=== PATIENT | male | born 1970 | race Caucasian/White ===

== ENCOUNTER 2018-03-08 16:11 | Emergency (ER) | payer BC, OTHER ==
[2018-03-08 16:18] VITALS: BP 145/91
--- NOTE | 2018-03-08 16:38 | EDPHY ---
H & P Time Seen by Provider: 03/08/18 16:34 HPI/ROS: CHIEF COMPLAINT: Left foot pain HISTORY OF PRESENT ILLNESS: 47-year-old male walked into the ER complaining of acute left foot pain after dropped a heavy piece of wood onto his foot today planning on the dorsal aspect. He is able to bear weight albeit with pain. Pain reproducible with weight-bearing and ambulation. History of chronic left foot neuropathy and pain secondary to old ft and ankle injury. No ankle pain today. No fall from height. PHYSICAL EXAM (Prior to examination, patient consented to physical exam, hands were washed and my usual and customary physical exam procedures followed) 1) GENERAL: Well-developed, well-nourished, alert and oriented. Appears to be in no acute distress. 2) HEAD: Normocephalic 3) HEENT: Pupils equal, round, reactive to light bilaterally. 4) LUNGS: Breathing comfortably. 5) MUSCULOSKELETAL: Tender to palpation dorsal lateral foot the 4th 5th metatarsal region. No abrasion no erythema no laceration. No crepitus. A puncture wound. No break in skin. No crepitus. No deformity. No puncture wound. Ankle nontender. proximal tibia and fibula nontender .5th MT nontender negative Hogan test, compartments soft . observed ambulating with antalgic gait. 6) SKIN: Intact 7) VASCULAR: DP,PT pulses and cap refill present and brisk DIFFERENTIAL DIAGNOSIS: in no particular order including but not limited to fracture, sprain, compartment syndrome Smoking Status: Current every day smoker Constitutional: Initial Vital Signs Temperature (C) 36.7 C 03/08/18 16:15 Heart Rate 94 03/08/18 16:15 Respiratory Rate 16 03/08/18 16:15 Blood Pressure 145/91 H 03/08/18 16:15 O2 Sat (%) 96 03/08/18 16:15 O2 Delivery Mode Room Air Allergies/Adverse Reactions: No Known Allergies Allergy (Unverified 03/08/18 16:15) Home Medications: Medication Instructions Recorded NK [No Known Home Meds] 03/08/18 MDM/Departure - MDM Imaging Results: Imaging Impressions Foot X-Ray 03/08/18 16:24 Impression: 1. No acute osseous abnormality seen left foot. 2. Findings suspicious for old trauma around the ankle joint and possible incomplete healing of fracture along the anterior process of the calcaneus. Findings were discussed by telephone with Ricco Baker PA-C at 17:09 hour, . Images reviewed by myself Imaging: I viewed and interpreted images myself ED Course/Re-evaluation: Patient was re-evaluated with serial examinations was recently at 4:55 p.m.. Discussed his imaging results showing no definitive acute osseous abnormality. Shows no signs of infection. He is informed of the subacute osseous findings on x-ray. He has no complaints of ankle pain on exam and denies ankle trauma. Compartments are soft. I recommended a postop shoe which he declines. He declines analgesia. Plan will be discharge with usual and customary orthopedic precautions and instructions. He feels comfortable being discharged. Care of patient under supervision of secondary supervising physician Dr Marin . - Depart Disposition: Home, Routine, Self-Care Clinical Impression: Left foot pain Condition: Good Instructions: Foot Sprain (ED) Additional Instructions: Return to the ER immediately if you experience discoloration, have worsening pain, numbness, tingling, or any other symptoms that concern you. If you received x-rays in the emergency department today, be advised, that ligamentous , tendon, muscular, and other non-bony injury cannot be fully ruled out. Try to keep your affected extremity elevated above the level of your chest, and keep cold packs on the affected area, for the next 48 hours. Referrals: Marvin Patterson MD [Medical Doctor] - 2-3 days, call for appt.
== END 2018-03-08 17:03 | disposition home or self-care (01) ==
DX: S99.922A Unspecified injury of left foot, initial encounter (principal); F17.200 Nicotine dependence, unspecified, uncomplicated; W20.8XXA Other cause of strike by thrown, projected or falling object, initial encounter